=== PATIENT | female | born 1980 | race Caucasian/White ===

== ENCOUNTER 2017-07-14 12:33 | Emergency (ER) | payer OTHER ==
--- NOTE | 2017-07-14 13:35 | C.PDOC ---
History Of Present Illness 37 y/o female presents to ED with complaints of upper back pain for 2 days after slipping on wet stairs and landing on her back. Patient states pain is worse with movement and reports taking Advil with mild relief, but came to ED requesting x-ray. Patient denies LOC, change in sensation or bowel/bladder incontinence. Time Seen by Provider: 07/14/17 12:56 Chief Complaint (Nursing): Back Pain History Per: Patient History/Exam Limitations: no limitations Onset/Duration Of Symptoms: Days Current Symptoms Are (Timing): Still Present Past Medical History Reviewed: Historical Data, Nursing Documentation, Vital Signs Vital Signs: Last Vital Signs Temp 98.4 F 07/14/17 14:11 Pulse 84 07/14/17 14:11 Resp 20 07/14/17 14:11 BP 129/79 07/14/17 14:11 Pulse Ox 96 07/14/17 14:11 - Medical History PMH: No Chronic Diseases Surgical History: No Surg Hx Family History: States: No Known Family Hx - Social History Hx Alcohol Use: No Hx Substance Use: No Review Of Systems Constitutional: Negative for: Fever, Chills Gastrointestinal: Negative for: Nausea, Abdominal Pain Musculoskeletal: Positive for: Back Pain Skin: Negative for: Rash Neurological: Negative for: Weakness, Numbness Physical Exam - Physical Exam Appears: Non-toxic, No Acute Distress Skin: Warm, Dry, No Rash Head: Atraumatic, Normacephalic Eye(s): bilateral: Normal Inspection, EOMI Oral Mucosa: Moist Neck: Normal ROM, Supple Chest: Symmetrical Cardiovascular: Rhythm Regular, No Murmur Respiratory: Normal Breath Sounds, No Rales, No Rhonchi, No Wheezing Gastrointestinal/Abdominal: Soft, No Tenderness, No Guarding, No Rebound Back: Normal Inspection (no swelling, bulging, erythema, ecchymosis or rash), No CVA Tenderness, No Vertebral Tenderness, No Decreased ROM, Paraspinal Tenderness (parathoracic) Extremity: Bilateral: Atraumatic, Normal Color And Temperature, Normal ROM Neurological/Psych: Oriented x3, Normal Speech, Normal Motor, Normal Sensation Gait: Steady ED Course And Treatment O2 Sat by Pulse Oximetry: 100 (RA) Pulse Ox Interpretation: Normal Medical Decision Making Medical Decision Making: Patient with upper back pain s.p fall. Xrays ordered and viewed by me. No acute fractures or abnormalities. Patient is ambulatory without signs of discomfort Disposition Counseled Patient/Family Regarding: Diagnosis, Need For Followup, Rx Given - Disposition Referrals: [facility] [Outside] [facility] [Outside] Disposition: HOME/ ROUTINE Disposition Time: 13:35 Condition: GOOD Additional Instructions: You can apply heat to area Take Tylenol 500mg for any pain Take Ibuprofen as needed for pain every 6-8 hours, with food to not upset stomach Take Flexeril every 8 hours as needed for muscular pain and spasm, caution may cause drowsiness Puedes aplicar calor al colleen [place] Tylenol 500 mg para cualquier dolor [place] ibuprofeno segn sea necesario para el dolor cada 6-8 horas, con alimentos para no disgustar el estmago [place] Flexeril cada 8 horas segn sea necesario para el dolor muscular y el espasmo, la precaucin puede causar somnolencia Prescriptions: Cyclobenzaprine [Cyclobenzaprine HCl] 10 mg PO TID #30 tab Ibuprofen [Motrin] 600 mg PO Q8 #30 tab Instructions: Upper Back Pain, Contusion (DC) Forms: [employer] (Luxembourgish), Work Excuse Print Language: ZAMBIAN - POA Present On Arrival: None - Clinical Impression Clinical Impression: Thoracic back pain, Contusion of back - PA / HOME CARE MANAGER RN / Resident Statement MD/DO has reviewed & agrees with the documentation as recorded. - Scribe Statement The provider has reviewed the documentation as recorded by the Ruel Coles All medical record entries made by the Ruel were at my direction and personally dictated by me. I have reviewed the chart and agree that the record accurately reflects my personal performance of the history, physical exam, medical decision making, and the department course for this patient. I have also personally directed, reviewed, and agree with the discharge instructions and disposition.
--- NOTE | 2017-07-14 13:54 | RAD ---
HISTORY: pain s.p fall COMPARISON: No prior. FINDINGS: BONES: Alignment maintained. No fracture. DISC SPACES: Normal. SOFT TISSUES: Normal. OTHER FINDINGS: None. IMPRESSION: Normal radiographs of the thoracic spine.
--- NOTE | 2017-07-14 13:58 | RAD ---
PROCEDURE: Cervical Spine Radiographs. HISTORY: Pain. COMPARISON: None. FINDINGS: BONES: Alignment maintained. No fracture. Dens Intact. DISC SPACES: Flank calcification and/or partial block vertebra 6-7 level -developmental variation. SOFT TISSUES: Normal. No prevertebral soft tissue swelling. OTHER FINDINGS: 1. Frontal view projecting over the right lung apex, there is a coiled entity of unclear significance. It is unclear if this intrinsic or extrinsic to the patient. IMPRESSION: No fracture or subluxation. Probable developmental variation at the C6-7 level. Indeterminate coiled entity projecting over the right lung apex as above.
[2017-07-14 14:12] VITALS: BP 129/79; PULSE 84; RESP 20; TEMP 98.4
[2017-07-14 14:45] VITALS: O2SAT 100
== END 2017-07-14 14:12 | disposition home or self-care (01) ==
LOC: C.ER 12:33
DX: S20.229A Contusion of unspecified back wall of thorax, initial encounter (principal); W01.0XXA Fall on same level from slipping, tripping and stumbling without subsequent striking against object, initial encounter; M54.6 Pain in thoracic spine